=== PATIENT | female | born 1950 | race Caucasian/White ===

== ENCOUNTER 2024-11-24 07:25 | Emergency (ER) | payer OTHER ==
[~2024-11-24] VITALS: Ht 177.8 cm; Wt 95.0 kg
[2024-11-24 07:43] VITALS: BP 170/83; PULSE 102; RESP 16; TEMP 97.9; O2SAT 99
[2024-11-24 07:56] LABS: BILIRUBIN,URINE NEGATIVE (Neg); CLARITY,URINE CLEAR (Clear); COLOR,URINE YELLOW (Yellow); GLUCOSE, URINE NEGATIVE (Neg); KETONES,URINE NEGATIVE (Neg); LEUKOCYTE ESTERASE ,URINE NEGATIVE (Neg); NITRITES, URINE NEGATIVE (Neg); OCCULT BLOOD,URINE NEGATIVE (Neg); PROTEIN,URINE NEGATIVE (Neg)
[2024-11-24 08:02] LABS: UA COLLECTION TYPE CLN CATCH MIDSTREAM
[2024-11-24 10:05] LABS: ALBUMIN 4.1 G/DL (3.4-5.0); ANION GAP 7 (8-16); BLOOD UREA NITROGEN 15 MG/DL (7-18); BUN/CREATININE RATIO 16.9 (10.0-20.0); CALCIUM 9.1 MG/DL (8.5-10.1); CHLORIDE 109 MMOL/L (99-107); CREATININE 0.89 MG/DL (0.40-0.90); GLUCOSE 106 MG/DL (70-104); POTASSIUM 4.2 MMOL/L (3.5-5.1); SODIUM 144 MMOL/L (135-145); TOTAL CARBON DIOXIDE 27.6 MMOL/L (24-32); eCRCL 62 ML/MIN; eGFR 62 ML/MIN
[2024-11-24] MEDS: phenazopyridine 100mg tablet PO ONE (10:23)
== END 2024-11-24 10:34 | disposition home or self-care (01) ==
LOC: ER 07:26
DX: R35.0 Frequency of micturition (principal); R10.84 Generalized abdominal pain; Z88.8 Allergy status to other drugs, medicaments and biological substances
CPT/HCPCS: 36415; 74176; 80048; 81003; 99284